=== PATIENT | male | born 1995 | race Caucasian/White ===

== ENCOUNTER 2017-05-19 22:04 | Emergency (ER) | payer BC ==
[2017-05-19] MEDS: HYDROCODONE/APAP (5/325) TAB PO (23:21)
[2017-05-20 00:14] LABS: ADD UMIC YES; UR ASCORBIC ACID 40 mg/dL (NEGATIVE); UR BILIRUBIN (Dip) NEGATIVE (NEGATIVE); UR BLOOD (Dip) NEGATIVE (NEGATIVE); UR CLARITY CLEAR (CLEAR); UR COLOR YELLOW (YELLOW); UR GLUCOSE (Dip) NEGATIVE (NEGATIVE); UR KETONES (Dip) NEGATIVE (NEGATIVE); UR LEUKOCYTE ESTERASE (Dip) TRACE Leu/ul (NEGATIVE); UR NITRITE (Dip) NEGATIVE (NEGATIVE); UR RBC 5 /HPF (0-5); UR SPECIFIC GRAVITY (Dip) 1.026 (1.003-1.030); UR TOTAL PROTEIN (Dip) NEGATIVE (NEGATIVE); UR UROBILINOGEN (Dip) 1+ mg/dL (NEGATIVE); UR WBC 33 /HPF (0-5)
[2017-05-20] MEDS: CEFTRIAXONE 1 GM INJ IM (00:23)
== END 2017-05-20 00:46 | disposition home or self-care (01) ==
LOC: FTE 22:04
DX: N45.1 Epididymitis (principal); F17.210 Nicotine dependence, cigarettes, uncomplicated
CPT/HCPCS: 76870; 81001; 87086; 87591; 96372; 99285-25

== ENCOUNTER 2018-05-16 10:50 | Emergency (ER) | payer BC ==
[2018-05-16 13:16] LABS: HEPATITIS B SURFACE ANTIGEN NEGATIVE (NEGATIVE)
[2018-05-16 13:33] LABS: HEPATITIS C VIRAL ANTIBODY NEGATIVE (NEGATIVE); HIV 1&2 ANTIBODY NEGATIVE (NEGATIVE)
[2018-05-16 13:34] LABS: HEPATITIS B SURFACE ANTIBODY NEGATIVE (NEGATIVE)
[2018-05-16 15:03] LABS: RAPID PLASMA REAGIN NONREACTIVE (NR)
[2018-05-17 11:08] LABS: HSV 2 IGG ANTIBODY <0.90 index
== END 2018-05-16 13:57 | disposition home or self-care (01) ==
LOC: FTE 10:50
DX: Z11.3 Encounter for screening for infections with a predominantly sexual mode of transmission (principal); Z87.891 Personal history of nicotine dependence
CPT/HCPCS: 36415; 86592; 86692; 86703; 86706; 86803; 87340; 87591; 99283